=== PATIENT | female | born 1995 | race Caucasian/White ===

== ENCOUNTER 2016-11-23 15:49 | Inpatient (IN) | payer OTHER, MEDICAID ==
[~2016-11-23] VITALS: Ht 165.1 cm; Wt 69.4 kg
[2016-11-23] VITALS (39 sets, daily range): BP systolic 97–136; BP diastolic 51–81; PULSE 71–122; RESP 18; TEMP 97.9–98.2
[~2016-11-23 15:49] MED LIST: FERR325C; PREN1CAP7
[2016-11-23] MEDS ORDERED: DIPHTH/TETANUS/ACEL PERTUSSIS (BOOSTER) 0.5 ML VIAL/PFS IM ONE (16:00)
[2016-11-23] MEDS ORDERED: MEASLES, MUMPS, RUBELLA VACCINE 0.5 ML VIAL SQ ONE (16:00)
[2016-11-23] MEDS ORDERED: LACTATED RINGER'S 1000 ML INJ 1,000 ML IV SCH (16:32)
[2016-11-23] MEDS ORDERED: LACTATED RINGER'S 1000 ML INJ 1,000 ML IV PRN (16:32)
--- NOTE | 2016-11-23 16:32 | PD ---
HPI Chief Complaint Contractions Date Seen: Nov 23, 2016 Time Seen: 16:29 Travel History International Travel<30 Days: No Contact w/Intl Traveler<30Days: No Known Affected Area: No History of Present Illness HPI 21-year-old who is at 39 weeks and 6 days comes in complaining of contractions since midnight. Patient described more intense contractions within the past 2 hours which brought her in to labor delivery. She is gotten her care with [facility] and is group B strep negative. Last exam last week her cervix was fingertip Para: 0 : 1 History Past Medical History Medical History: Denies Significant Hx Past Surgical History Surgical History: No Previous Surgery Family History Family History: Negative Social History Alcohol Use: No Tobacco Use: No Substance Abuse: No Allergies-Medications (Allergen,Severity, Reaction): Coded Allergies: No Known Allergies (Unverified , 11/18/16) Home Meds Active Scripts W/O Vit A W/ Fe Fumar (Citranatal [place])27-1-260 Mg Cap Sample #2 Prov:Alley Little 10/25/16 Reported Medications Ferrous Sulfate (Iron)325 Mg Capsule.er 11/11/16 Discontinued Scripts Cephalexin 500 Mg [id number] Mg PO Q8H #21 CAP Ref 0 Prov:Shelbi Brown 11/11/16 Review of Systems Except as stated in HPI: all other systems reviewed are Neg Physical Exam Narrative GENERAL: Well-nourished, well-developed patient. SKIN: Warm and dry. HEAD: Normocephalic and atraumatic. EYES: No scleral icterus. No injection or drainage. ENT: No nasal drainage noted. Mucous membranes pink. Airway patent. NECK: Supple, trachea midline. No JVD. CARDIOVASCULAR: Regular rate and rhythm without murmurs, gallops, or rubs. RESPIRATORY: Breath sounds equal bilaterally. No accessory muscle use. BREASTS: Bilateral exam showed no masses , no retractions, no nipple discharge. ABDOMEN/GI: Abdomen soft, non-tender, bowel sounds present, no rebound, no guarding Gravid to [-37] weeks size Fundal Height: [-] GENITOURINARY: External Genitalia: intact and normal in appearance BUS glands: [-Normal] Cervix: [Mid position-] Dilatation: [-4] Effacement: [90-] Station: [--2] Presentation: [-Vertex] Membranes: [intact ] Uterine Contractions: [-Every 5] FHT's: Category: [1-] Baseline: [145-] Reactive: [-Moderate] Variability: [-Moderate] Decels: [Absent-] EXTREMITIES: No cyanosis or edema. BACK: Nontender without obvious deformity. No CVA tenderness. NEUROLOGICAL: Awake and alert. Motor and sensory grossly within normal limits. Five out of 5 muscle strength in all muscle groups. Normal speech. Data Data Vital Signs Reviewed: Yes [facility] Medical Record Reviewed: Yes Plan 21-year-old at 39 weeks 6 days for admission in labor Group B strep negative Diagnosis Diagnosis: Primary Impression: Irregular uterine contractions Additional Impression: 39 weeks gestation of Shelly Hensley MD Nov 23, 2016 16:32
[2016-11-23] MEDS ORDERED: OXYTOCIN 30 UNITS-500ML PREMIX 500 ML IV ONE (16:45)
[2016-11-23] MEDS ORDERED: CITRIC ACID-SODIUM CITRATE LIQ 30 ML UDC PO SCH (16:45)
[2016-11-23] MEDS ORDERED: LIDOCAINE HCL 1% 50 ML VIAL INFIL PRN (16:45)
[2016-11-23] MEDS ORDERED: MINERAL OIL 10 ML VIAL TOPICAL PRN (16:45)
[2016-11-23] MEDS ORDERED: SODIUM CHLORID 0.9% 500 ML INJ 500 ML IV PRN (16:45)
[2016-11-23] MEDS ORDERED: LIDOCAINE HCL 1% 50 ML VIAL I-DERMAL PRN (16:45)
[2016-11-23] MEDS ORDERED: SODIUM CHLOR 0.9% 1000 ML INJ 1,000 ML IV PRN (16:52)
[2016-11-23 17:21] LABS: AUTOMATED NEUTROPHIL # 10.7 TH/MM3 (1.8-7.7); BASOPHIL % 0.2 % (0.0-2.0); EOSINOPHIL % 0.1 % (0.0-4.0); HEMATOCRIT 32.7 % (35.0-46.0); HEMO FLAGS DIFF FINAL; LYMPH % 11.2 % (9.0-44.0); LYMPHOCYTE # 1.5 TH/MM3 (1.0-4.8); MEAN CELL VOLUME 69.5 FL (80.0-100.0); MEAN CORPUSCULAR HEMOGLOBIN 21.6 PG (27.0-34.0); MONO % 6.4 % (0.0-8.0); NEUT % 82.1 % (16.0-70.0); PLATELET COUNT 323 TH/MM3 (150-450); RED BLOOD COUNT 4.71 MIL/MM3 (4.00-5.30)
[2016-11-23 17:23] LABS: BACTERIA, URINE MANY /hpf; BLOOD, URINE MOD (NEG); GLUCOSE,URINE NEG (NEG); KETONE, URINE NEG (NEG); MUCUS URINE FEW /lpf (OCC); NITRITE,URINE NEG (NEG); SQUAMOUS EPITHELIAL CELL URINE 6 /hpf (0-5); TRANSITIONAL EPI CELLS, URINE 2 /hpf; URINE COLOR YELLOW (YELLW/STRAW)
[2016-11-23 17:26] LABS: COMMENT (UR) CATH-CULTURE IND; CULTURE IF INDICATED CATH CULTURE IND
--- NOTE | 2016-11-23 17:42 | HHI.HP ---
History & Physical H&P HPI Chief Complaint Contractions Date Seen: Nov 23, 2016 Time Seen: 16:29 Travel History International Travel<30 Days: No Contact w/Intl Traveler<30Days: No Known Affected Area: No History of Present Illness HPI 21-year-old who is at 39 weeks and 6 days comes in complaining of contractions since midnight. Patient described more intense contractions within the past 2 hours which brought her in to labor delivery. She is gotten her care with Gail Gold and is group B strep negative. Last exam last week her cervix was fingertip Para: 0 : 1 History Past Medical History Medical History: Denies Significant Hx Past Surgical History Surgical History: No Previous Surgery Family History Family History: Negative Social History Alcohol Use: No Tobacco Use: No Substance Abuse: No Allergies-Medications (Allergen,Severity, Reaction): Coded Allergies: No Known Allergies (Unverified , 11/18/16) Home Meds Active Scripts W/O Vit A W/ Fe Fumar (Citranatal [place])27-1-260 Mg Cap Sample #2 Prov:Alley Little 10/25/16 Reported Medications Ferrous Sulfate (Iron)325 Mg Capsule.er 11/11/16 Discontinued Scripts Cephalexin 500 Mg [id number] Mg PO Q8H #21 CAP Ref 0 Prov:Shelbi Brown 11/11/16 Review of Systems Except as stated in HPI: all other systems reviewed are Neg Physical Exam Narrative GENERAL: Well-nourished, well-developed patient. SKIN: Warm and dry. HEAD: Normocephalic and atraumatic. EYES: No scleral icterus. No injection or drainage. ENT: No nasal drainage noted. Mucous membranes pink. Airway patent. NECK: Supple, trachea midline. No JVD. CARDIOVASCULAR: Regular rate and rhythm without murmurs, gallops, or rubs. RESPIRATORY: Breath sounds equal bilaterally. No accessory muscle use. BREASTS: Bilateral exam showed no masses , no retractions, no nipple discharge. ABDOMEN/GI: Abdomen soft, non-tender, bowel sounds present, no rebound, no guarding Gravid to [-37] weeks size Fundal Height: [-] GENITOURINARY: External Genitalia: intact and normal in appearance BUS glands: [-Normal] Cervix: [Mid position-] Dilatation: [-4] Effacement: [90-] Station: [--2] Presentation: [-Vertex] Membranes: [intact ] Uterine Contractions: [-Every 5] FHT's: Category: [1-] Baseline: [145-] Reactive: [-Moderate] Variability: [-Moderate] Decels: [Absent-] EXTREMITIES: No cyanosis or edema. BACK: Nontender without obvious deformity. No CVA tenderness. NEUROLOGICAL: Awake and alert. Motor and sensory grossly within normal limits. Five out of 5 muscle strength in all muscle groups. Normal speech. Data Data Vital Signs Reviewed: Yes [facility] Medical Record Reviewed: Yes Plan 21-year-old at 39 weeks 6 days for admission in labor Group B strep negative Diagnosis Diagnosis: Primary Impression: Irregular uterine contractions Additional Impression: 39 weeks gestation of , admit for labor Shelly Hensley MD Nov 23, 2016 17:42
[2016-11-23] MEDS ORDERED: OXYTOCIN 30 UNITS-500ML PREMIX 500 ML IV SCH (17:45)
--- NOTE | 2016-11-23 17:48 | HHI.PR ---
[facility] Note Note Cervix 4/80/-2, arom done with small amount of clear fluid in forebag. No further fluid noted. FHR is category 1 with baseline 145, moderate reactivity, no decelerations. Possibility of thick meconium given the trace amount of fluid but heart rate tracing is reassuring at this time. Shelly Hensley MD Nov 23, 2016 17:47
[2016-11-23] MEDS ORDERED: fentaNYL 2MCG-BUPIV 0.125% INJ 100 ML ONE (19:40)
--- NOTE | 2016-11-23 23:42 | PD.OB.DELI ---
Delivery Date: Nov 23, 2016 Anesthesia: Epidural Episiotomy: None Vaginal Delivery: Normal, Spontaneous Presentation: Occiput anterior, Vertex Nuchal Cord: None Delayed cord clamping (45 sec): Yes Infant: Female One Minute : 9 Five Minute : 9 Weight: 3395gms Placenta: Spontaneous delivery, Intact Laceration: Vaginal laceration (bilateral large periurethral lacerations with repair 3-0 chromic) Repair: Chromic running Additional Information EBL= 300cc Shelly Hensley MD Nov 23, 2016 23:42
[2016-11-23] MEDS ORDERED: ALUMINUM/MAGNESIUM/SIMETH 30 ML CUP PO PRN (23:45)
[2016-11-23] MEDS ORDERED: ZOLPIDEM TARTRATE 5 MG TAB PO PRN (23:45)
[2016-11-23] MEDS ORDERED: DOCUSATE SODIUM 50 MG/SENNA 8.6 MG TAB PO PRN (23:45)
[2016-11-23] MEDS ORDERED: ONDANSETRON ODT 4 MG TAB PO PRN (23:45)
[2016-11-23] MEDS ORDERED: ACETAMINOPHEN 325 MG TAB PO PRN (23:45)
[2016-11-23] MEDS ORDERED: WITCH HAZEL 50%/GLYCERIN 12.5% 40 PAD JAR TOPICAL PRN (23:45)
[2016-11-23] MEDS ORDERED: BENZOCAINE 20% TOPICAL SPRAY 60 ML CAN TOPICAL PRN (23:45)
[2016-11-23] MEDS ORDERED: oxyCODONE/ACETAMINOPHEN 5 MG/325 MG TAB PO PRN ×2 (23:45)
[2016-11-24] VITALS (11 sets, daily range): BP systolic 110–132; BP diastolic 59–86; PULSE 78–94; RESP 16–18; TEMP 98.1–98.5
--- NOTE | 2016-11-24 11:19 | HHI.OB ---
Subjective Post Day: 1 Remarks 21 year old female s/p NVD at 39 wks gestation, PPD 1. AFVSS. Patient reports she is feeling well. Bleeding is decreasing and pain is well- controlled. She is breast feeding and bonding well with baby. Ambulating without difficulties. She is tolerating a diet without nausea or vomiting. She has not had a bowel movement. She has passed gas. Denies chest pain, dysuria, shortness of breath, or calf pain. Objective Vitals/I&O Vital Signs Date Time Temp Pulse Resp B/P Pulse Ox O2 Delivery O2 Flow Rate FiO2 11/24/16 08:00 86 16 121/78 11/24/16 08:00 98.4 11/24/16 04:30 98.5 11/24/16 04:30 80 18 112/62 11/24/16 01:30 98.3 18 11/24/16 01:15 78 110/64 11/24/16 01:13 18 11/24/16 01:00 80 118/59 11/24/16 00:45 18 11/24/16 00:45 82 112/70 11/24/16 00:30 89 118/70 11/24/16 00:15 85 118/72 11/24/16 00:15 18 11/24/16 00:00 94 132/72 11/23/16 23:45 18 11/23/16 23:45 104 107/74 11/23/16 23:45 98.2 11/23/16 23:30 96 118/55 11/23/16 23:15 122 130/81 11/23/16 23:01 88 132/68 11/23/16 22:45 98 136/74 11/23/16 22:31 81 119/72 11/23/16 22:15 18 11/23/16 22:15 82 127/64 11/23/16 22:01 78 103/51 11/23/16 22:00 18 11/23/16 21:45 76 120/61 11/23/16 21:45 18 11/23/16 21:30 18 11/23/16 21:30 80 108/54 11/23/16 21:15 77 119/65 11/23/16 21:15 18 11/23/16 21:00 75 112/66 11/23/16 20:50 88 115/70 11/23/16 20:45 76 120/64 11/23/16 20:41 96 112/54 11/23/16 20:35 75 119/70 11/23/16 20:30 75 113/68 11/23/16 20:25 74 97/79 11/23/16 20:20 72 110/59 11/23/16 20:15 87 109/67 11/23/16 20:10 93 101/65 11/23/16 20:08 97.9 18 11/23/16 20:05 94 112/51 11/23/16 20:00 101 98/54 11/23/16 19:55 76 11/23/16 19:55 91 105/57 11/23/16 19:50 87 11/23/16 19:50 88 116/63 11/23/16 19:45 71 119/67 11/23/16 19:31 76 112/55 11/23/16 19:27 76 122/73 11/23/16 18:44 85 120/75 11/23/16 18:09 87 118/70 11/23/16 16:35 90 11/23/16 16:30 96 11/23/16 16:25 99 11/23/16 16:20 117 11/23/16 16:15 97 11/23/16 16:15 98.1 18 11/23/16 16:10 120 11/23/16 16:09 121 122/78 Objective Remarks GENERAL: Well-nourished, well-developed patient. CARDIOVASCULAR: Regular rate and rhythm without murmurs, gallops, or rubs. RESPIRATORY: Breath sounds equal bilaterally. No accessory muscle use. ABDOMEN/GI: Abdomen soft, non-tender. Fundus: Firm, non-tender at umbilicus. GENITOURINARY: Light to moderate bleeding. EXTREMITIES: No cyanosis or edema, non-tender, without signs of DVT. Medications and IVs Current Medications Medications (Trade) Dose Ordered Sig/Jeremy Route Start Time Stop Time Status Last Admin (Tylenol) 650 mg Q4H PRN PO 11/23/16 23:45 (Motrin) 600 mg Q6H PRN PO 11/23/16 23:45 (Percocet 5-325 Mg) 1 tab Q4H PRN PO 11/23/16 23:45 (Percocet 5-325 Mg) 2 tab Q4H PRN PO 11/23/16 23:45 (Americaine 20% Top Spr) 1 spray Q4H PRN TOPICAL 11/23/16 23:45 (Tucks Pads) 1 applic QID PRN TOPICAL 11/23/16 23:45 (Sarahy-Colace) 2 tab Q12H PRN PO 11/23/16 23:45 (Ambien) 5 mg HS PRN PO 11/23/16 23:45 (Mag-Al Plus Susp Liq) 15 ml Q8H PRN PO 11/23/16 23:45 (Zofran Odt) 4 mg Q6H PRN PO 11/23/16 23:45 Assessment/Plan Problem List: (1) Normal vaginal delivery Assessment and Plan 21 yo female s/p NVD PPD 1 . - AFVSS - Continue routine care - Motrin PRN pain - Encourage OOB - Pelvic rest x 6 wks. - Contraception: To be determined - Anticipate D/C 11/25 Edwin Overton MD R1 Nov 24, 2016 11:19
[2016-11-25] MEDS: IBUPROFEN 600 MG TAB PO PRN ×2 (00:09→09:15)
[2016-11-25] MEDS ORDERED: IBUP-232 PO (06:20)
--- NOTE | 2016-11-25 06:20 | HHI.DCPOC ---
Discharge Care Plan Diagnosis: (1) Normal vaginal delivery Report Symptoms to Your Doctor -Temperature above 100.5 degrees -Redness, of incision or excessive or foul smelling drainage -Unusual pain or calf pain -Increased vaginal bleeding -Painful or difficulty urinating -Feelings of extreme sadness or anxiety after 2 weeks Goals to Promote Your Health * To prevent worsening of your condition and complications * To maintain your health at the optimal level Directions to Meet Your Goals Take your medications as prescribed Follow your dietary instruction Follow activity as directed Ensure plenty of rest for recovery Drink fluids for hydration Keep your appointments as scheduled Take your immunizations and boosters as scheduled If your symptoms worsen call your PCP, if no PCP go to Urgent Care Center or Emergency Room Smoking is Dangerous to Your Health. Avoid second hand smoke Call the 24-hour crisis hotline for domestic abuse at Edwin Overton MD R1 Nov 25, 2016 06:20
[2016-11-25 09:00] VITALS: BP 124/76; PULSE 88; RESP 18; TEMP 98.4
[2016-11-25] MEDS ORDERED: SULFAMETHOXAZOLE-TRIMETHOPRIM DS 800-160 MG TAB PO SCH (09:00)
[2016-11-25] MEDS ORDERED: SULF1TAB23 PO (09:14)
--- NOTE | 2016-11-25 10:40 | HHI.OB ---
Subjective Post Day: 2 Remarks 21 year old female s/p NVD at 40 wks gestation, PPD 2. AFVSS. Patient reports she is feeling well. Bleeding is decreasing and pain is well- controlled. She is breast feeding and bonding well with baby. Ambulating without difficulties. She is tolerating a diet without nausea or vomiting. She has had a bowel movement. She has passed gas. Denies chest pain, dysuria, shortness of breath, or calf pain. (Edwin Overton MD R1) Objective Vitals/I&O Vital Signs Date Time Temp Pulse Resp B/P Pulse Ox O2 Delivery O2 Flow Rate FiO2 11/25/16 09:00 98.4 88 18 124/76 11/24/16 19:45 94 127/86 11/24/16 19:45 98.1 16 Objective Remarks GENERAL: Well-nourished, well-developed patient. CARDIOVASCULAR: Regular rate and rhythm without murmurs, gallops, or rubs. RESPIRATORY: Breath sounds equal bilaterally. No accessory muscle use. ABDOMEN/GI: Abdomen soft, non-tender. Fundus: Firm, non-tender at umbilicus. GENITOURINARY: Light to moderate bleeding. EXTREMITIES: No cyanosis or edema, non-tender, without signs of DVT. Medications and IVs Current Medications Medications (Trade) Dose Ordered Sig/Jeremy Route Start Time Stop Time Status Last Admin (Tylenol) 650 mg Q4H PRN PO 11/23/16 23:45 (Motrin) 600 mg Q6H PRN PO 11/23/16 23:45 11/25/16 09:15 (Percocet 5-325 Mg) 1 tab Q4H PRN PO 11/23/16 23:45 (Percocet 5-325 Mg) 2 tab Q4H PRN PO 11/23/16 23:45 (Americaine 20% Top Spr) 1 spray Q4H PRN TOPICAL 11/23/16 23:45 (Tucks Pads) 1 applic QID PRN TOPICAL 11/23/16 23:45 (Sarahy-Colace) 2 tab Q12H PRN PO 11/23/16 23:45 (Ambien) 5 mg HS PRN PO 11/23/16 23:45 (Mag-Al Plus Susp Liq) 15 ml Q8H PRN PO 11/23/16 23:45 (Zofran Odt) 4 mg Q6H PRN PO 11/23/16 23:45 (Bactrim Ds 800-160 Mg) 1 tab Q12HR PO 11/25/16 09:00 11/25/16 09:16 (Edwin Overton MD R1) Assessment/Plan Problem List: (1) Normal vaginal delivery Assessment and Plan 21 yo female s/p NVD PPD 1 . - AFVSS - Continue routine care - Motrin PRN pain - Encourage OOB - Pelvic rest x 6 wks. - Contraception: To be determined - Discharge home today (Edwin Overton MD R1) Attending Attestation The exam, history, and the medical decision-making described in the above note were completed with the assistance of the resident provider. I reviewed and agree with the findings presented. I attest that I had a [id number] encounter with the patient on the same day, and personally performed and documented my assessment and findings in the medical record. (Rudy Goldstein MD) Edwin Overton MD R1 Nov 25, 2016 10:40 Rudy Goldstein MD Nov 25, 2016 10:42
== END 2016-11-25 13:17 | disposition home or self-care (01) | DRG 775 ==
LOC: HOBED 15:49 → H2EA 16:35 → H1EA 11-24 02:49
PROVIDERS: ADMIT Obstetrics & Gynecology Obstetrics; ATTEND Obstetrics & Gynecology Obstetrics
PROC: 10E0XZZ Delivery of Products of Conception, External Approach (ICD-10-PCS; principal; 2016-11-23)
PROC: 0UQMXZZ Repair Vulva, External Approach (ICD-10-PCS; 2016-11-23)
PROC: 10907ZC Drainage of Amniotic Fluid, Therapeutic from Products of Conception, Via Natural or Artificial Opening (ICD-10-PCS; 2016-11-23)
PROC: 3E0S3CZ (ICD-10-PCS; 2016-11-23)
PROC: 00HU33Z Insertion of Infusion Device into Spinal Canal, Percutaneous Approach (ICD-10-PCS; 2016-11-23)
DX: O71.82 Other specified trauma to perineum and vulva (principal); Z37.0 Single live birth; Z3A.39 39 weeks gestation of pregnancy
CPT/HCPCS: 81001; 85025; 86900; 86901; 87077; 87086; 87186; 99285; J2590; J7120

== ENCOUNTER 2017-03-23 14:16 | Emergency (ER) | payer OTHER, MEDICAID ==
[~2017-03-23] VITALS: Ht 165.1 cm; Wt 61.5 kg
[~2017-03-23 14:16] MED LIST changes: -FERR325C; -PREN1CAP7; +SPRI28TA PO
[2017-03-23 14:17] VITALS: BP 115/67; PULSE 80; RESP 18; TEMP 98.7; O2SAT 100
[2017-03-23 15:23] LABS: BASOPHIL % 0.8 % (0.0-2.0); EOSINOPHIL % 0.5 % (0.0-4.0); HEMATOCRIT 34.1 % (35.0-46.0); HEMO FLAGS DIFF FINAL; LYMPHOCYTE # 1.7 TH/MM3 (1.0-4.8); MEAN CELL VOLUME 75.4 FL (80.0-100.0); MEAN CORPUSCULAR HEMOGLOBIN 25.1 PG (27.0-34.0); MEAN CORPUSCULAR HGB CONC 33.3 % (32.0-36.0); MONO % 7.2 % (0.0-8.0); NEUT % 64.5 % (16.0-70.0); PLATELET COUNT 285 TH/MM3 (150-450); RED BLOOD COUNT 4.52 MIL/MM3 (4.00-5.30); WHITE BLOOD COUNT 6.2 TH/MM3 (4.0-11.0)
[2017-03-23 15:31] LABS: BACTERIA, URINE RARE /hpf; BLOOD, URINE LARGE (NEG); COMMENT (UR) CULT NOT INDICATED; CULTURE IF INDICATED CULT NOT INDICATED; GLUCOSE,URINE NEG (NEG); KETONE, URINE NEG (NEG); NITRITE,URINE NEG (NEG); SQUAMOUS EPITHELIAL CELL URINE 2 /hpf (0-5); URINE COLOR LIGHT-YELLOW (YELLW/STRAW)
[2017-03-23 15:43] LABS: BICARBONATE 23.3 MEQ/L (21.0-32.0); POTASSIUM 3.6 MEQ/L (3.5-5.1)
--- NOTE | 2017-03-23 16:20 | PD ---
HPI Chief Complaint: Donations Attendant Problem/Complaint Time Seen by Provider: 16:20 Travel History International Travel<30 days: No Contact w/Intl Traveler<30days: No Traveled to known affect area: No History of Present Illness HPI 22-year-old female came to the emergency room with history of vaginal bleeding. Patient says that she was 7 weeks when she went to a women's clinic to get an done. She was given a pill and when she went home she started having vaginal bleeding. She was passing large clot which slowly got less frequent and lesser in size. She was doing okay up until today when she started passing large fist-sized clots again. She was changing a pad every 30 minutes. She called the clinic which is in [place]. They asked her to go to the emergency room to get an ultrasound done. Patient already had blood work done prior to coming in that was done in triage. Blood test results were back and her beta-hCG is close to 6500. Patient says that her bleeding and the cramps are little better at this point. She did not take anything for the pain. Patient did not have any syncopal episode or lightheadedness. [facility] Past Medical History Narrative Medical List of her past medical, surgical, social and family history is reviewed from the nursing note. Social History Alcohol Use: No Tobacco Use: No Allergies-Medications (Allergen,Severity, Reaction): Coded Allergies: No Known Allergies (Verified Adverse Reaction, Unknown, 03/23/17) Comments No known drug allergies. Reported Meds & Prescriptions Reported Meds & Active Scripts Active No Active Prescriptions or Reported Medications Narrative Medication List of her home medications reviewed from the nursing note. Review of Systems Except as stated in HPI: all other systems reviewed are Neg Genitourinary: Positive: Vaginal Bleeding Physical Exam Narrative GENERAL: Awake, alert, mild distress SKIN: Focused skin assessment warm/dry. Pale HEAD: Atraumatic. Normocephalic. EYES: Pupils equal and round. No scleral icterus. No injection or drainage. ENT: No nasal bleeding or discharge. Mucous membranes pink and moist. NECK: Trachea midline. No JVD. CARDIOVASCULAR: Regular rate and rhythm. No murmur appreciated. RESPIRATORY: No accessory muscle use. Clear to auscultation. Breath sounds equal bilaterally. GASTROINTESTINAL: Abdomen soft, non-tender, nondistended. Hepatic and splenic margins not palpable. MUSCULOSKELETAL: No obvious deformities. No clubbing. No cyanosis. No edema. NEUROLOGICAL: Awake and alert. No obvious cranial nerve deficits. Motor grossly within normal limits. Normal speech. PSYCHIATRIC: Appropriate mood and affect; insight and judgment normal. Data Data Last Documented VS Vital Signs Date Time Temp Pulse Resp B/P (MAP) Pulse Ox O2 Delivery O2 Flow Rate FiO2 03/23/17 19:01 97.8 78 16 110/77 (88) 99 03/23/17 14:17 Room Air Orders Orders Complete Blood Count With Diff (03/23/17 14:36) Basic Metabolic Panel (Bmp) (03/23/17 14:36) Beta Hcg (Quant/Titer) (03/23/17 14:36) Urinalysis - C+S If Indicated (03/23/17 14:36) Type And Screen (03/23/17 16:41) Us Pelvis Comp W Doppler (03/23/17 ) Ed Discharge Order (03/23/17 18:26) Misoprostol (Cytotec) (03/23/17 18:30) Doxycycline (Vibramycin) (03/23/17 18:30) Labs Laboratory Tests Test 03/23/17 15:00 White Blood Count 6.2 TH/MM3 Red Blood Count 4.52 MIL/MM3 Hemoglobin 11.4 GM/DL Hematocrit 34.1 % Mean Corpuscular Volume 75.4 FL Mean Corpuscular Hemoglobin 25.1 PG Mean Corpuscular Hemoglobin Concent 33.3 % Red Cell Distribution Width 15.0 % Platelet Count 285 TH/MM3 Mean Platelet Volume 7.9 FL Neutrophils (%) (Auto) 64.5 % Lymphocytes (%) (Auto) 27.0 % Monocytes (%) (Auto) 7.2 % Eosinophils (%) (Auto) 0.5 % Basophils (%) (Auto) 0.8 % Neutrophils # (Auto) 4.0 TH/MM3 Lymphocytes # (Auto) 1.7 TH/MM3 Monocytes # (Auto) 0.5 TH/MM3 Eosinophils # (Auto) 0.0 TH/MM3 Basophils # (Auto) 0.0 TH/MM3 CBC Comment DIFF FINAL Differential Comment Urine Color LIGHT-YELLOW Urine Turbidity CLEAR Urine pH 7.0 Urine Specific [place] 1.004 Urine Protein NEG mg/dL Urine Glucose (UA) NEG mg/dL Urine Ketones NEG mg/dL Urine Occult Blood LARGE Urine Nitrite NEG Urine Bilirubin NEG Urine Urobilinogen LESS THAN 2.0 MG/DL Urine Leukocyte Esterase NEG Urine RBC 6 /hpf Urine WBC 1 /hpf Urine Squamous Epithelial Cells 2 /hpf Urine Bacteria RARE /hpf Microscopic Urinalysis Comment CULT NOT INDICATED Blood Urea Nitrogen 5 MG/DL Creatinine 0.70 MG/DL Random Glucose 80 MG/DL Calcium Level 9.1 MG/DL Sodium Level 136 MEQ/L Potassium Level 3.6 MEQ/L Chloride Level 105 MEQ/L Carbon Dioxide Level 23.3 MEQ/L Anion Gap 8 MEQ/L Estimat Glomerular Filtration Rate 103 ML/MIN Human Chorionic Gonadotropin, Quant 6391 MIU/ML MDM Medical Decision Making Medical Screen Exam Complete: Yes Emergency Medical Condition: Yes Medical Record Reviewed: Yes Differential Diagnosis Retained products of conception, menstruation Narrative Course 5:49 PM patient's hemoglobin and hematocrit are stable. Her blood pressure stable as well. I got an ultrasound which has been dictated as retained products of conception. I discussed the case with Dr. Villarreal who is the OB hospitalist. She will come down to see the patient and recommend what needs to be done at this point. Awaiting for her to see the patient and give the recommendation. I'm also waiting for her blood type to check for Rh incompatibility. 6:[address] Villarreal from the hospitalist is down here to see the patient and she agrees that the patient should have a D&C. But patient is refusing to have that done. She will send her home with Cytotec and doxycycline. I will discharge her home. Procedures EKG Prior to Arrival: No Diagnosis Primary Impression: Retained products of conception after delivery without hemorrhage Additional Instructions: Return to the ER if the condition worsens. Follow-up with [facility]. Scripts No Active Prescriptions or Reported Meds Disposition: 01 DISCHARGE HOME Condition: Stable Adams Navarro MD Mar 23, 2017 16:20
--- NOTE | 2017-03-23 17:30 | RADRPT ---
EXAM DATE/TIME: 03/23/2017 16:53 [facility] COMPARISON: No previous studies available for comparison. INDICATIONS : Heavy bleeding/possible retained products of conception. MEDICAL HISTORY : . Elective x1 week ago. Urinary tract infection. SURGICAL HISTORY : Tonsillectomy. Bladder surgery. ENCOUNTER: Initial ACUITY: 1 day PAIN SCORE: 5/10 LOCATION: Bilateral pelvis MEASUREMENTS: UTERUS: 8.6 x 8.3 x 5.5 cm ENDOMETRIAL STRIPE: 2 mm RIGHT OVARY: 2.4 x 1.5 x 1.7 cm LEFT OVARY: 2.9 x 1.6 x 2.1 cm FINDINGS: UTERUS: Prominent debris is present within the uterus. This is suspicious for retained products of conceptio n. I don't see in the proximal of conception. RIGHT OVARY: Ovary contains no mass or significant cystic lesion. LEFT OVARY: Ovary contains no mass or significant cystic lesion. MISCELLANEOUS: No free fluid. CONCLUSION: Prominent debris or debris an endometrioma the uterus suspicious for retained product of conception. There is no identifiable conception. Jas Jiménez MD FACR on March 23, 2017 at 17:26 Board Certified Radiologist. This report was verified electronically.
[2017-03-23] MEDS ORDERED: MISOPROSTOL 200 MCG TAB PO ONE (18:30)
[2017-03-23] MEDS ORDERED: DOXYCYCLINE HYCLATE 100 MG CAP PO ONE (18:30)
--- NOTE | 2017-03-23 18:54 | PD.CONS ---
HPI Chief Complaint Vaginal bleeding s/p EAB Travel History International Travel<30 Days: No Contact w/Intl Traveler<30Days: No Known Affected Area: No History of Present Illness HPI 25 y/o s/p EAB by (from history) mifepristone given on 04/15/17 and 800 micrograms misprostol on 04/17/17 at 7w gestational age. She reports she was also given an antibiotic pill to take one time. The patient reports she started bleeding about 30-40 minutes after taking the misoprostol, passing some clots at that time. 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 She denies any heavy bleeding during this time. She reports that yesterday her bleeding was very light, like her period was ending. She reports that she started bleeding again this morning and had heavy bleeding between 11 to 12:30, however only bleeding like a period since. She denies any other heavy bleeding. She denies any clots this time. She denies any nausea/vomiting, fevers/chills, or any other concerns. She states that when she passed clots she thought this was the products of conception. She denies any lightheadedness, dizziness, or other related symptoms. Para: 1 : 2 History Past Medical History Narrative Medical Frequent urinary tract infections Obstetric History Obstetric History 001 Full-term delivery 11/23/16 Denies any STDs She reports she's had no occasional abnormal Paps or but they have always resolved on repeat and been normal Past Surgical History Narrative Surgical Bladder surgery/urethral dilation as a child Family History Family History: Negative Social History Alcohol Use: No Tobacco Use: No Substance Abuse: No Allergies-Medications (Allergen,Severity, Reaction): Coded Allergies: No Known Allergies (Verified Adverse Reaction, Unknown, 03/23/17) Home Meds Discontinued Scripts Norgestimate-Ethinyl Estradiol (Sprintec 28) 0.25-35 mg-Mcg Tab, 1 TAB PO DAILY for Control, #1 PACK 11 Refills Prov:Alley Little CNM 12/31/16 Review of Systems Except as stated in HPI: all other systems reviewed are Neg Genitourinary: Vaginal Bleeding Physical Exam Vital Signs Date Time Temp Pulse Resp B/P (MAP) Pulse Ox O2 Delivery O2 Flow Rate FiO2 03/23/17 16:20 80 16 03/23/17 14:17 98.7 80 18 115/67 (83) 100 Room Air Narrative GENERAL: Well-nourished, well-developed patient. SKIN: Warm and dry. HEAD: Normocephalic and atraumatic. EYES: No scleral icterus. No injection or drainage. ENT: No nasal drainage noted. Mucous membranes pink. Airway patent. NECK: Supple, trachea midline. No JVD. CARDIOVASCULAR: Regular rate and rhythm without murmurs, gallops, or rubs. RESPIRATORY: Breath sounds equal bilaterally. No accessory muscle use. BREASTS: Deferred ABDOMEN/GI: Abdomen soft, non-tender, bowel sounds present, no rebound, no guarding GENITOURINARY: External Genitalia: intact and normal in appearance. Grossly normal BUS glands. There are no cervical or vaginal masses appreciated and grossly normal rugated was noted. A small amount of dark blood was noted in the vagina, less than 25-30 cc. There is a small amount but only minimal bleeding noted from the cervical os. There were some possible POC's present at the cervical os which were grasped and removed with a ring forcep. With verbal consent from the patient during forceps were used to try to remove any additional remaining products of conception from above the endocervical canal. SVE 1 cm EXTREMITIES: No cyanosis or edema. BACK: Nontender without obvious deformity. NEUROLOGICAL: Awake and alert. Motor and sensory grossly within normal limits. Five out of 5 muscle strength in all muscle groups. Normal speech. Musculoskeletal: Grossly normal range of motion, gait, muscle strength Psychiatric: Grossly normal memory and affect Data Data Orders Orders Complete Blood Count With Diff (03/23/17 14:36) Basic Metabolic Panel (Bmp) (03/23/17 14:36) Beta Hcg (Quant/Titer) (03/23/17 14:36) Urinalysis - C+S If Indicated (03/23/17 14:36) Type And Screen (03/23/17 16:41) Us Pelvis Comp W Doppler (03/23/17 ) Ed Discharge Order (03/23/17 18:26) Misoprostol (Cytotec) (03/23/17 18:30) Doxycycline (Vibramycin) (03/23/17 18:30) Labs Laboratory Tests Test 03/23/17 15:00 White Blood Count 6.2 Red Blood Count 4.52 Hemoglobin 11.4 Hematocrit 34.1 Mean Corpuscular Volume 75.4 Mean Corpuscular Hemoglobin 25.1 Mean Corpuscular Hemoglobin Concent 33.3 Red Cell Distribution Width 15.0 Platelet Count 285 Mean Platelet Volume 7.9 Neutrophils (%) (Auto) 64.5 Lymphocytes (%) (Auto) 27.0 Monocytes (%) (Auto) 7.2 Eosinophils (%) (Auto) 0.5 Basophils (%) (Auto) 0.8 Neutrophils # (Auto) 4.0 Lymphocytes # (Auto) 1.7 Monocytes # (Auto) 0.5 Eosinophils # (Auto) 0.0 Basophils # (Auto) 0.0 CBC Comment DIFF FINAL Differential Comment Urine Color LIGHT-YELLOW Urine Turbidity CLEAR Urine pH 7.0 Urine Specific Bradford 1.004 Urine Protein NEG Urine Glucose (UA) NEG Urine Ketones NEG Urine Occult Blood LARGE Urine Nitrite NEG Urine Bilirubin NEG Urine Urobilinogen LESS THAN 2.0 Urine Leukocyte Esterase NEG Urine RBC 6 Urine WBC 1 Urine Squamous Epithelial Cells 2 Urine Bacteria RARE Microscopic Urinalysis Comment CULT NOT INDICATED Blood Urea Nitrogen 5 Creatinine 0.70 Random Glucose 80 Calcium Level 9.1 Sodium Level 136 Potassium Level 3.6 Chloride Level 105 Carbon Dioxide Level 23.3 Anion Gap 8 Estimat Glomerular Filtration Rate 103 Human Chorionic Gonadotropin, Quant 6391 [facility] Plan Assessment/plan: 25-year-old 001 1. Status post EAB at 7 weeks gestational age, apparently incomplete EAB: I recommended a D&C to the patient due to the incomplete nature of her EAB and the retained products of conception that were noted on ultrasound as well as her continued bleeding. The ultrasound images were reviewed. Despite my recommendation of a D&C, The patient refuses surgical intervention with D&C at this time. We discussed at length the risks of her refusal including pain infection continued bleeding, bleeding that may require further intervention or transfusion, emergent surgical intervention, and other possible complications. The patient continues to decline a D&C. We discussed an alternative therapy with Cytotec however discussed that this is not the usual recommended treatment plan and will be considered off label use. However, again the patient is adamant in her refusal of a D&C, so will give Cytotec 800 g. This is discussed with our DRINKING WATER TECHNICIAN back up Dr. Gonzalez who is in agreement with the plan and recommended Cytotec 800 g orally. Doxycycline 100 mg by mouth twice a day for 7 days was given due to the patient's history as well as instrumentation in the ED. The patient is given strict bleeding precautions. She is to return for heavy bleeding greater than 1 pad per hour, fever, chills, nausea, vomiting, or any other concerns. The patient was given first dose of antibiotics and Cytotec to take and the ED prior to discharge by the ED attending. 2. Hemoglobin stable at 11.4 3. A positive 4. Patient to follow up with Dr. Gonzlaez in 2-3 days or sooner if needed, she is to call the office in the morning. Disposition: 01 DISCHARGE HOME Condition: Stable Scripts No Active Prescriptions or Reported Meds Additional Instructions: Return to the ER if the condition worsens. Follow-up with DRINKING WATER TECHNICIAN. Shelbi Villarreal MD Mar 23, 2017 18:54
[2017-03-23 19:01] VITALS: BP 110/77; TEMP 97.8
== END 2017-03-23 19:05 | disposition home or self-care (01) ==
LOC: NEPE 14:16
DX: O03.1 Delayed or excessive hemorrhage following incomplete spontaneous abortion (principal)
CPT/HCPCS: 76856; 80048; 81001; 84702; 85025; 86850; 86900; 86901; 88305; 93975